=== PATIENT | female | born 1940 ===

== ENCOUNTER 2017-11-12 12:59 | Emergency (ER) | payer MEDICARE, OTHER ==
[2017-11-12 13:12] VITALS: BMI 30.2
[2017-11-12] MEDS ORDERED: Tdap Vaccine 0.5 ml Vial (10-64 yrs) IM ONE ×2 (13:13→14:14)
[2017-11-12] MEDS ORDERED: Bacitracin 500 Units/gm Oint Foilpak UD TOP STA (13:14)
--- NOTE | 2017-11-12 13:18 | C.PDOC ---
History Of Present Illness Patient is a 77 y/o F presenting after fall. Patient [place] the [place] she went to step on the escalator. She reports that the escalator was moving too fast and as she went to step onto the escalator she fell forward. She reports that she hit her head but did not have LOC. She is complaining of pain to R forehead, neck and L arm. Denies chest pain, shortness of breath, hip pain. Denies anticoagulant use. Last tetanus unknown. Time Seen by Provider: 11/12/17 13:03 Chief Complaint (Nursing): Abnormal Skin Integrity Past Medical History Vital Signs: Last Vital Signs Temp 97.9 F 11/12/17 16:14 Pulse 100 H 11/12/17 16:14 Resp 20 11/12/17 16:14 BP 145/83 11/12/17 16:14 Pulse Ox 96 11/12/17 16:14 Family History: States: No Known Family Hx Review Of Systems Constitutional: Negative for: Fever, Chills Eyes: Negative for: Vision Change ENT: Negative for: Ear Pain Cardiovascular: Negative for: Chest Pain, Palpitations, Edema, Light Headedness Respiratory: Negative for: Cough, Shortness of Breath, SOB with Excertion, Wheezing Gastrointestinal: Negative for: Nausea, Vomiting, Abdominal Pain, Diarrhea, Constipation Musculoskeletal: Positive for: Neck Pain, Arm Pain. Negative for: Shoulder Pain , Back Pain, Hand Pain, Leg Pain Skin: Positive for: Other (abrasions from escalator) Neurological: Positive for: Headache. Negative for: Weakness, Numbness, Incoordination, Change in Speech, Confusion, Seizures, Altered Mental Status, Dizziness Psych: Negative for: Anxiety, Depression Physical Exam - Physical Exam Appears: Well, Non-toxic, No Acute Distress Skin: Warm, Dry Head: Normacephalic, Abrasion (to R forehead) Eye(s): bilateral: Normal Inspection, PERRL, EOMI Nose: Normal Tongue: Normal Appearing Lips: Normal Appearing Teeth: Normal Dentition Gingiva: Normal Appearing Throat: Normal Neck: Normal ROM, No Midline Cervical Tenderness, Paracervical Tenderness, No Step Off Deformity Chest: Symmetrical, No Tenderness, No Ecchymosis, No Subcutaneous Emphysema Cardiovascular: Rhythm Regular Respiratory: Normal Breath Sounds, No Rales, No Rhonchi, No Wheezing Gastrointestinal/Abdominal: Soft, No Tenderness Back: Normal Inspection, No CVA Tenderness, No Vertebral Tenderness Extremity: Normal ROM, Other (3 linear lacerations to R lower leg. No active bleeding. Distal pulses intact. Normal ROM. Normal strength. No bony hip tenderness. Bruising to L wrist to radial side, but normal ROM and strength. No bony tenderness) Extremity: Bilateral: Hips Non-Tender, Pelvis-Stable Neurological/Psych: Oriented x3, Normal Motor, Normal Sensation Gait: Steady Laceration - Laceration Repair Right lower leg Wound Length (In cm): 2cm Description Of Wound: Linear Anesthesia: Lidocaine 1% Wound Examination: Irrigated With Saline, No FB With Wound Exploration Wound Closure: Suture (4) Suture Technique And Material Used: Interrupted (Ethilon 4-O) R lower leg Wound Length (In cm): 2cm Description Of Wound: Stellate Anesthesia: Lidocaine 1% Wound Examination: Irrigated With Saline, No FB With Wound Exploration Wound Closure: Suture (3) Suture Technique And Material Used: Interrupted (Ethilon 4-O) Medical Decision Making Medical Decision Making: -ct head - ct c-spine -wrist xray -tetatnus CT head and CT c-spine negative. Laceration repaired. Tetanus updated. Aware of her thyroid issues and is following up. Disposition - Disposition Disposition: HOME/ ROUTINE Disposition Time: 16:23 Condition: GOOD Additional Instructions: You need to follow-up for your enlarged thyroid. Follow-up with PMD within 2 days. Keep abrasions clean and dry. Return to ED if condition worsens. Sutures need removed in 7-10 days Instructions: Preventing Falls in the Older Adult, Thyroid Nodules Forms: Fillm (Persian) - Clinical Impression Clinical Impression: Fall, Thyromegaly, Laceration
--- NOTE | 2017-11-12 14:27 | CT ---
PROCEDURE: CT scan brain dated 11/12/2017 HISTORY: Status post fall with head trauma COMPARISON: None available. TECHNIQUE: Axial computed tomography images were obtained through the head/brain without intravenous contrast. Radiation dose: Total exam DLP = 1034.96 mGy-cm. This CT exam was performed using one or more of the following dose reduction techniques: Automated exposure control, adjustment of the mA and/or kV according to patient size, and/or use of iterative reconstruction technique. FINDINGS: HEMORRHAGE: No acute parenchymal, subarachnoid nor extra-axial hemorrhage. BRAIN: Minor chronic periventricular white matter ischemic changes. Mild to moderate generalized volume loss. Incidental note made of few tiny foci of fat within the interhemispheric fissure Minor vascular calcifications both carotid siphons. VENTRICLES: No obstructive hydrocephalus. CALVARIUM: There are no acute calvarial fracture seen PARANASAL SINUSES: Unremarkable as visualized. No significant inflammatory changes. MASTOID AIR CELLS: Unremarkable as visualized. No inflammatory changes. OTHER FINDINGS: Changes of bilateral cataract surgery IMPRESSION: No acute intracranial hemorrhage. Minor chronic periventricular white matter ischemic changes. Mild to moderate generalized volume loss.
--- NOTE | 2017-11-12 14:36 | RAD ---
PROCEDURE: Left Wrist Radiographs. HISTORY: L wrist pain after fall COMPARISON: None. FINDINGS: BONES: Normal. No fracture. JOINTS: Normal. No dislocation. SOFT TISSUES: Normal. OTHER FINDINGS: None. IMPRESSION: Normal left wrist radiographs.
--- NOTE | 2017-11-12 15:05 | CT ---
PROCEDURE: CT scan of the cervical spine dated 11/12/2017 HISTORY: Status post fall with head trauma and neck pain. COMPARISON: No prior study available for comparison TECHNIQUE: Contiguous helical/ transaxial computed tomography images were obtained of the cervical spine without the use of intravenous contrast. Coronal and sagittal reformatted images were created and reviewed. Radiation dose: Total exam DLP = 612.44 mGy-cm. This CT exam was performed using one or more of the following dose reduction techniques: Automated exposure control, adjustment of the mA and/or kV according to patient size, and/or use of iterative reconstruction technique. FINDINGS: VERTEBRAE: No evidence of acute compression nor displaced fractures of cervical or visualized upper thoracic segments. Vertebral bodies exhibit normal stature. There is straightening of the normal cervical lordosis however vertebral bodies otherwise exhibit normal alignment. Facets normally aligned. Note is made of a well-circumscribed lucent focus within the C4 segment just to the right of midline of uncertain etiology though most likely represents a benign bone cyst however clinical correlation with history recommended ; if there is a history of primary carcinoma this patient consider followup MRI of the cervical spine. DISCS/SPINAL CANAL/NEURAL FORAMINA: Minimal anterior subluxation C3 over C4 felt to be degenerative in origin. At the C3-C4 level there is also minimal broad-based bulge of the posterior annulus which minimally flattens the ventral surface of the thecal sac though does not result in any significant cord compression. Central canal is slightly narrowed however exit foramina appear adequate. At the C5-C6 level, there is small chronic appearing Schmorl's node along the inferior C5 endplate. Small irregular disc ridge complex slightly focally larger on the right than left. The uncovertebral joints exhibit mild degenerative squaring. Facets also mildly hypertrophic. Central canal is slightly narrowed. Exit foramina appear adequate. PARASPINAL SOFT TISSUES: No significant prevertebral or paraspinal soft tissue swelling. OTHER FINDINGS: The thyroid gland appears slightly enlarged and heterogeneous particularly the left lobe. Consider followup thyroid ultrasound further evaluation is required. Lung apices clear. IMPRESSION: No evidence of acute compression nor displaced cervical spine fractures. Mild multilevel degenerative spondylosis. Slightly enlarged heterogeneous thyroid gland. Consider followup thyroid ultrasound further evaluation.
[2017-11-12] MEDS ORDERED: Lidocaine 1% Inj (20ml) INFIL ONE (15:19)
[2017-11-12] MEDS ORDERED: Bacitracin 500 Units/gm Oint Foilpak UD ONE (15:48)
[2017-11-12 16:15] VITALS: BP 145/83; PULSE 100; RESP 20; TEMP 97.9; O2SAT 96
== END 2017-11-12 16:58 | disposition home or self-care (01) ==
LOC: C.ER 12:59 → MERGE 12:59 → C.ER 16:58
DX: S81.811A Laceration without foreign body, right lower leg, initial encounter (principal); W10.0XXA Fall (on)(from) escalator, initial encounter; Y92.59 Other trade areas as the place of occurrence of the external cause; E01.0 Iodine-deficiency related diffuse (endemic) goiter; Z23 Encounter for immunization